=== PATIENT | male | born 1950 | race Hispanic/Latino ===

== ENCOUNTER → 2020-11-03 | Outpatient (CLI) | payer OTHER | END | disposition home or self-care (01) | LOC: SHCH 07:53 | PROVIDERS: ATTEND Internal Medicine Cardiovascular Disease | DX: I65.23 Occlusion and stenosis of bilateral carotid arteries (principal); I25.10 Atherosclerotic heart disease of native coronary artery without angina pectoris; Q27.1 Congenital renal artery stenosis | CPT/HCPCS: 93880; 93975 ==

== ENCOUNTER → 2021-07-07 | Outpatient (CLI) | payer OTHER | END | disposition home or self-care (01) | LOC: SHCH 08:17 | PROVIDERS: ATTEND Internal Medicine Cardiovascular Disease | DX: G45.9 Transient cerebral ischemic attack, unspecified (principal) | CPT/HCPCS: 93880 ==

== ENCOUNTER → 2022-10-26 | Outpatient (CLI) | payer OTHER | END | disposition home or self-care (01) | LOC: SHCH 14:00 | PROVIDERS: ATTEND Internal Medicine Cardiovascular Disease | DX: I65.23 Occlusion and stenosis of bilateral carotid arteries (principal) | CPT/HCPCS: 93880 ==

== ENCOUNTER → 2023-10-06 | Outpatient (CLI) | payer OTHER | END | disposition home or self-care (01) | LOC: SHCH 08:13 | PROVIDERS: ATTEND Internal Medicine Cardiovascular Disease | DX: Q27.1 Congenital renal artery stenosis (principal) | CPT/HCPCS: 93975 ==

== ENCOUNTER → 2024-02-14 | Outpatient (CLI) | payer OTHER | END | disposition home or self-care (01) | LOC: SHCH 11:57 | PROVIDERS: ATTEND Internal Medicine Cardiovascular Disease | DX: I65.23 Occlusion and stenosis of bilateral carotid arteries (principal) | CPT/HCPCS: 93880 ==

== ENCOUNTER → 2024-08-28 | Outpatient (CLI) | payer OTHER ==
--- NOTE | 2024-08-28 13:47 | HMCSR ---
APPROVED REPORT Indications Resistant HTN , Prior Renal Doppler done on 10-06-23 Renal Artery Doppler Origin (R) 100.6/11.8 cm/secOrigin (L) 250.8/45.0 cm/sec Proximal (R) 141.5/30.8 cm/secProximal (L) 180.6/37.7 cm/sec Mid (R) 118.3/20.1 cm/secMid (L) 178.6/29.8 cm/sec Distal (R) 107.7/29.6 cm/secDistal (L) 98.2/20.1 cm/sec Renal/Aorta Ratio (R) 1.53Renal Aorta Ratio (L) 2.71 Resistive Index (R) 0.74Resistive Index (L) 0.76 Segmental A. (R) 63.9/16.6 cm/secLt. Segmental A. (L) 70.1/17.1 cm/sec Renal Measurements Kidney Size (R) 11.4x5.7x5.5 cmKidney Size (L)11.7x5.5x5.3 cm Aortic Doppler VelocityWaveform Proximal Aorta 92.3 cm/sec Technologist Impression Elevated velocities noted in the left renal artery with a normal renal to aortic ratio. Both kidneys appear to be within normal size parameters (greater than 9.0cm and symmetrical). Conclusion Moderate left renal artery stenosis. Conclusion Moderate left renal artery stenosis.
== END | disposition home or self-care (01) ==
LOC: SHCH 07:48
PROVIDERS: ATTEND Internal Medicine Cardiovascular Disease
DX: I70.1 Atherosclerosis of renal artery (principal); I1A.0 Resistant hypertension
CPT/HCPCS: 93975